=== PATIENT | male | born 1960 | race Two or more races ===

== ENCOUNTER 2020-04-18 11:25 | Outpatient (REF) | payer BC, SELFPAY | END 2020-04-18 11:26 | disposition home or self-care (01) | LOC: HO.LAB 11:25 | PROVIDERS: Visit Provider Nurse Practitioner Family | DX: L02.416 Cutaneous abscess of left lower limb (principal); L03.116 Cellulitis of left lower limb | CPT/HCPCS: 87071; 87077; 87186; 87205 ==

== ENCOUNTER 2020-05-06 12:58 | Outpatient (RCR) | payer BC, SELFPAY | END 2020-05-14 13:25 | disposition home or self-care (01) | LOC: HO.WCC 12:58 | PROVIDERS: Visit Provider Physician Assistant | DX: L03.116 Cellulitis of left lower limb (principal); L66.2 Folliculitis decalvans; Z79.2 Long term (current) use of antibiotics | CPT/HCPCS: 99212 ==

== ENCOUNTER 2021-07-11 19:18 | Emergency (ER) | payer BC, SELFPAY ==
--- NOTE | ~2021-07-11 | XR_ITS ---
EXAMINATION: XR CHEST CLINICAL INFORMATION: Influenza positive COMPARISON: X-ray 07/23/2015 TECHNIQUE: Frontal view of the chest was obtained. FINDINGS: Normal heart size. Mediastinal silhouette is within normal limits. There is hazy opacity in the left mid and lower lung, which could represent subtle infiltrates.. No effusion, edema or pneumothorax. XR/XR chest 1V IMPRESSION: Hazy opacities in left mid/lower lung, could represent subtle infiltrates. No dense consolidation is otherwise seen. Consider follow-up chest series to be obtained following treatment and/or resolution of symptoms to assure resolution of this appearance.
[2021-07-11 19:32] VITALS: BP 119/81; PULSE 85; RESP 17; TEMP 36.6; O2SAT 96; BMI 27.3
[2021-07-11 19:43] LABS: MANUAL DIFF FLAG NO
[2021-07-11 19:46] LABS: Basophils Percent Auto 0.4 % (0-2); Eosinophils Absolute Auto 0.2 X10*3/uL (0.0-0.4); Eosinophils Percent Auto 3.1 % (0-4); Hematocrit 43.7 % (42.0-52.0); Hemoglobin 14.9 g/dl (14.0-18.0); Imm Gran Abs Auto 0.01 X10*3/uL (0.00-0.03); Imm Gran Pct Auto 0.1 % (0.0-0.4); Lymphocytes Absolute Auto 1.9 X10*3/uL (1.2-4.9); Lymphocytes Percent Auto 27.3 % (20-40); Mean Corpuscular HGB Conc 34.1 g/dl (31.0-36.0); Mean Corpuscular Hemoglobin 29.7 pg (27.0-33.0); Mean Corpuscular Volume 87.2 fL (80.0-98.0); Mean Platelet Volume 9.9 fL (9.4-12.4); Monocytes Absolute Auto 0.6 X10*3/uL (0.1-1.2); Monocytes Percent Auto 7.8 % (2-11); Neutrophils Absolute Auto 4.3 x10*3/uL (2.0-8.3); Neutrophils Percent Auto 61.3 % (45-73); Platelet Count 200 X10*3/uL (160-400); Red Blood Count 5.01 X10*6/uL (4.60-5.80); Red Cell Distribution Width 14.9 % (11.0-16.0); White Blood Count 7.1 X10*3/uL (4.8-10.8)
[2021-07-11 20:00] LABS: COVID-19 Test Negative (Negative)
--- NOTE | 2021-07-11 20:03 | ED_ITS ---
HPI - General Adult General Chief complaint: General Medical Stated complaint: bodyaches Time Seen by Provider: 07/11/21 20:03 Source: patient Mode of arrival: ambulatory Limitations: no limitations History of Present Illness HPI narrative: Patient otherwise healthy history of COVID pneumonia last year already been vaccinated against influenza and COVID been sick for last 3- 4 days checked for the influenza on 07/09 positive comes here for as still coughing a lot mostly dry cough with body aches low-grade fever patient is on Tamiflu Related Data Home Medications Medication Instructions Recorded Confirmed flu vac [id number] 36mos up(PF) ml IM 04/18/20 Previous Rx's Medication Instructions Recorded cephalexin 500 mg capsule (Keflex) 500 mg PO QID 7 Days #28 cap 04/18/20 sulfamethoxazole 800 1 tab PO Q12H #14 tab 04/18/20 mg-trimethoprim 160 mg tablet (Bactrim DS) doxycycline hyclate 100 mg capsule 100 mg PO BID 10 Days #20 cap 04/25/20 albuterol sulfate 90 mcg/actuation 2 puff INHALATION Q4-6H PRN #8.5 g 07/11/21 aerosol inhaler (ProAir HFA) codeine 10 mg-guaifenesin 100 mg/5 10 ml PO Q6H PRN #237 ml 07/11/21 mL oral liquid Allergies Allergy/AdvReac Type Severity Reaction Status Date / Time No Known Allergies Allergy Verified 07/11/21 19:32 Review of Systems Review of Systems: Yes all other systems are reviewed and are negative PMFSH Social History Social History Advance Directives: No Advance Directives Information Provided: No Physical Exam ED Vital Signs: Vital Signs - 24 hr 07/11/21 19:32 Temperature 98 F Pulse Rate 85 Respiratory Rate 17 Blood Pressure 119/81 Pulse Oximetry 96 BMI result Body Mass Index 27.3 Appearance: Alert. Oriented X3. Frequent dry cough ENT: Pharynx normal. Oral Mucosa moist Neck: Normal inspection. Neck supple. CVS: Normal heart rate and rhythm. Pulses normal. Respiratory: No respiratory distress. Equal air entry bilateral, prolonged expiration with frequent cough no crackles Abdomen: Soft and nontender. Bowel sounds are present, Skin: Skin warm and dry. Normal skin color. Normal skin turgor. Neuro: Oriented X 3. Medical Decision Making MDM Narrative Medical decision making narrative: Patient with influenza A with wheezing labs are stable chest x-ray negative for infiltrate will discharge patient home on cough syrup and albuterol inhaler patient already on Tamiflu Lab Data Lab results reviewed: Yes I reviewed the patient's lab results. Result diagrams: 07/11/21 19:31 07/11/21 19:31 Labs: Lab Results 07/11/21 07/11/21 07/11/21 Range/Units 19:28 19:31 19:31 WBC 7.1 (4.8-10.8) X10*3/uL RBC 5.01 (4.60-5.80) X10*6/uL Hgb 14.9 (14.0-18.0) g/dl Hct 43.7 (42.0-52.0) % MCV 87.2 (80.0-98.0) fL MCH 29.7 (27.0-33.0) pg MCHC 34.1 (31.0-36.0) g/dl RDW 14.9 (11.0-16.0) % Plt Count 200 (160-400) X10*3/uL MPV 9.9 (9.4-12.4) fL Immature Gran % (Auto) 0.1 (0.0-0.4) % Neut % (Auto) 61.3 (45-73) % Lymph % (Auto) 27.3 (20-40) % [place] % (Auto) 7.8 (2-11) % Eos % (Auto) 3.1 (0-4) % Baso % (Auto) 0.4 (0-2) % Lymph # (Auto) 1.9 (1.2-4.9) X10*3/uL [place] # (Auto) 0.6 (0.1-1.2) X10*3/uL Eos # (Auto) 0.2 (0.0-0.4) X10*3/uL Baso # (Auto) 0.0 (0.0-0.2) X10*3/uL Abs Immat Gran (auto) 0.01 (0.00-0.03) X10*3/uL Absolute Neuts (auto) 4.3 (2.0-8.3) x10*3/uL Absolute Nucleated RBC 0.000 (0.0-0.012) X10*3/uL Nucleated RBC % (auto) 0.0 (0.0-0.2) /100WBC Sodium 143 (135-145) mmol/L Potassium 4.4 (3.3-5.1) mmol/L Chloride 107 (96-108) mmol/L Carbon Dioxide 26 (22-29) mmol/L Anion Gap 14 (12-20) BUN 16 (9-16) mg/dL Creatinine 1.29 (0.5-1.4) mg/dL Estim Creat Clear Calc 60.8 Estimated GFR 57 Random Glucose 86 (60-115) mg/dL Calcium 8.6 (8.4-10.2) mg/dL Total Bilirubin 0.3 (0.0-1.0) mg/dL AST 16 (5-37) U/L ALT 19 (0-40) U/L Alkaline Phosphatase 57 (39-117) U/L Total Protein 6.9 (6.5-8.0) g/dL Albumin 4.1 (3.5-5.0) g/dL COVID-19 (JOSE) Negative (Negative) COVID-19 Clin Com See Note Discharge Plan Discharge Clinical Impression: Influenza A Patient Disposition: Home, Self-Care Instructions: Influenza (ED) Additional Instructions: Take medication as prescribed inhaler and cough syrup Drink plenty of fluids Prescriptions: New codeine-guaifenesin 10-100 mg/5 mL liquid 10 ml PO Q6H PRN (Reason: cough) Qty: 237 0RF albuterol sulfate [ProAir HFA] 90 mcg/actuation HFA aerosol inhaler 2 puff inhalation Q4-6H PRN (Reason: Wheezing) Qty: 8.5 0RF No Action Afluria Qd 2019-(3yr up)(PF) 60 mcg (15 mcg x 4)/0.5 mL syringe IM 0RF cephalexin [Keflex] 500 mg capsule 500 mg PO QID 7 Days Qty: 28 0RF sulfamethoxazole-trimethoprim [Bactrim DS] 800-160 mg tablet 1 tab PO Q12H Qty: 14 0RF doxycycline hyclate 100 mg capsule 100 mg PO BID 10 Days Qty: 20 0RF Stand Alone Forms: Work/School Release
[2021-07-11 20:07] LABS: Alanine Aminotransferase 19 U/L (0-40); Albumin Level 4.1 g/dL (3.5-5.0); Alkaline Phosphatase 57 U/L (39-117); Anion Gap 14 (12-20); Aspartate Amino Transferase 16 U/L (5-37); Bilirubin Total 0.3 mg/dL (0.0-1.0); Blood Urea Nitrogen 16 mg/dL (9-16); Calcium 8.6 mg/dL (8.4-10.2); Carbon Dioxide 26 mmol/L (22-29); Chloride 107 mmol/L (96-108); Creatinine Clr Calc Pharmacy 60.8; Estimated Glomerular Filt Rate 57; Glucose Random 86 mg/dL (60-115); Potassium 4.4 mmol/L (3.3-5.1); Sodium 143 mmol/L (135-145); Total Protein 6.9 g/dL (6.5-8.0)
[2021-07-11] MEDS: Albuterol Sulfate 90 MCG 8 GM INHALER 4 PUFF INHALE (20:27)
[2021-07-11] MEDS: guaiFEN/Codeine SF 200/20/10ML 10 ML LIQUID PO (20:27)
== END 2021-07-11 21:51 | disposition home or self-care (01) ==
PROVIDERS: Emergency Provider Internal Medicine
DX: J11.1 Influenza due to unidentified influenza virus with other respiratory manifestations (principal); Z20.822 Contact with and (suspected) exposure to COVID-19
CPT/HCPCS: 36415; 71045; 80053; 85025; 87635; 99283; 99284

== ENCOUNTER 2022-06-06 12:33 | Emergency (ER) | payer BC, SELFPAY ==
[2022-06-06 12:55] VITALS: BP 127/69; PULSE 65; RESP 18; TEMP 36.3; O2SAT 98; BMI 26.6
--- NOTE | 2022-06-06 12:57 | ED.ABDPAIN ---
HPI - Abdominal Pain General Chief Complaint: Nausea/Vomiting/Diarrhea <Jaki Santos NP - Last Filed: 06/06/22 13:00> Stated Complaint: Stomach Cramps Nausea <Jaki Santos NP - Last Filed: 06/06/22 13:00> Time Seen by Provider: 06/06/22 14:52 <Jaki Santos NP - Last Filed: 06/06/22 13:00> Source: patient and family (Son at bedside) <VISHNU Carey Last Filed: 06/06/22 16:45> Mode of arrival: ambulatory <VISHNU Carey Last Filed: 06/06/22 16:45> Limitations: no limitations <VISHNU Carey Last Filed: 06/06/22 16:45> History of Present Illness HPI narrative: Pt is a 61 y/o male with no significant pMHX, send here after going to urgent care for n/v/d.? He also had a fever of 102 yesterday. They were concerned about abd tenderness and recommended he be seen in the ED.? Pt states his symptoms started around 0230 Tuesday and everyone in his family has a similar illness, including his son in a nearby ED room.? Pt has been unable to keep fluids and food down and is feeling dry.? He explains that his abd started hurting after vomiting and tensing up and feels crampy with the diarrhea.? He appeared comfortable and was not guarding. PT denies recent antibiotic use, headache, dizziness, loc, sob, chest pain, dysuria, CVAT is a currently afebrile. <VISHNU Carey - Last Filed: 06/06/22 16:45> MD elicited complaint: other (Nausea/vomiting/diarrhea) <VISHNU Carey Last Filed: 06/06/22 16:45> Pertinent past history: none <VISHNU Carey Last Filed: 06/06/22 16:45> Onset (ago): day(s) (2) <VISHNU Carey Last Filed: 06/06/22 16:45> Pain Consistency: constant <VISHNU Carey Last Filed: 06/06/22 16:45> Location: diffuse <VISHNU Carey - Last Filed: 06/06/22 16:45> Severity: mild <VISHNU Carey - Last Filed: 06/06/22 16:45> Quality: cramping <VISHNU Carey - Last Filed: 06/06/22 16:45> Radiation: none <VISHNU Carey - Last Filed: 06/06/22 16:45> Migration to: no migration <VISHNU Carey - Last Filed: 06/06/22 16:45> Exacerbating factors: nothing <VISHNU Carey - Last Filed: 06/06/22 16:45> Relieving factors: nothing <VISHNU Carey - Last Filed: 06/06/22 16:45> Associated symptoms: nausea, vomiting, diarrhea and fever <VISHNU Carey - Last Filed: 06/06/22 16:45> Related Data Home Medications: Home Medications Medication Instructions Recorded Confirmed flu vac [id number] 36mos up(PF) 60 ml IM 04/18/20 mcg (15 mcg x4)/0.5 mL IM syringe Previous Rx's Medication Instructions Recorded sulfamethoxazole 800 1 tab PO Q12H #14 tabs 04/18/20 mg-trimethoprim 160 mg tablet (Bactrim DS) doxycycline hyclate 100 mg capsule 100 mg PO BID 10 days #20 caps 04/25/20 albuterol sulfate 90 mcg/actuation 2 puff inhalation Q4-6H PRN 07/11/21 aerosol inhaler (ProAir HFA) Wheezing #8.5 grams codeine 10 mg-guaifenesin 100 mg/5 10 ml PO Q6H PRN cough #237 mL 07/11/21 mL oral liquid cephalexin 500 mg capsule 500 mg PO BID 10 days #20 caps 04/02/22 meloxicam 15 mg tablet 15 mg PO DAILY #14 tabs 04/02/22 ketorolac 10 mg tablet 10 mg PO Q8H #14 tabs 06/06/22 ondansetron HCl 4 mg tablet 4 mg PO Q8H #14 tabs 06/06/22 <Jaki Santos NP - Last Filed: 06/06/22 13:00> Allergies/Adverse Reactions: Allergies Allergy/AdvReac Type Severity Reaction Status Date / Time No Known Allergies Allergy Verified 04/02/22 09:31 <Jaki Santos NP - Last Filed: 06/06/22 13:00> Review of Systems Review of Systems Constitutional : + resolved Fever, No Chills, No Night Sweats, No Fatigue, No Malaise Cardiovascular : No Chest Pain, No SOB Respiratory : No Cough, No Sputum, No Wheezing, No Dyspnea Gastrointestinal : + Nausea, + Vomiting, + Diarrhea, + abdominal Pain, No Hematochezia, No Melena Genitourinary : No irregular bleeding, No Dysuria, No Urinary Frequency, No Hematuria,No Urinary Incontinence, No Urgency, No Flank Pain Musculoskeletal : No joint pain, No Myalgias, No Joint Swelling Skin : No Skin Lesions, No rash Neuro : No Weakness, No Numbness, No Paresthesias, No Loss of Consciousness, No Dizziness, No Headache Heme/Lymph: No Lymphadenopathy Endocrine : No Temperature Intolerance <VISHNU Carey - Last Filed: 06/06/22 16:45> Yes all other systems are reviewed and are negative <VISHNU Carey - Last Filed: 06/06/22 16:45> [facility] Past Medical History Attestation statement: The following information was validated with the patient. <VISHNU Carey - Last Filed: 06/06/22 16:45> Source: old records reviewed, obtained from family and nursing notes reviewed <VISHNU Carey - Last Filed: 06/06/22 16:45> Social History Social History: Social History Advance Directives: No Advance Directives Information Provided: No <Jaki Santos NP - Last Filed: 06/06/22 13:00> Physical Exam ED Vital Signs: Vital Signs - 24 hr 06/06/22 12:55 06/06/22 14:51 Temperature 97.3 F 98.3 F Pulse Rate 65 83 Respiratory Rate 18 14 Blood Pressure 127/69 127/99 H Pulse Oximetry 98 96 Oxygen Delivery Method Room Air Room Air BMI result Body Mass Index 26.6 <Jaki Santos NP - Last Filed: 06/06/22 13:00> Vital Signs - 24 hr 06/06/22 12:55 06/06/22 14:51 Temperature 97.3 F 98.3 F Pulse Rate 65 83 Respiratory Rate 18 14 Blood Pressure 127/69 127/99 H Pulse Oximetry 98 96 Oxygen Delivery Method Room Air Room Air BMI result Body Mass Index 26.6 Vital signs have been reviewed and all within normal limits <VISHNU Carey - Last Filed: 06/06/22 16:45> Appearance: Alert. Oriented X3. No acute distress. Head: Normal external exam. Normocephalic. Eyes: PERRLA. EOMI. Conjunctiva and sclera normal. Eyelids normal. ENT: Pharynx normal. Uvula midline. Moist mucous membranes. No trismus noted. No drooling noted. No muffled voice noted. Neck: Normal inspection. Neck supple. FROM. No adenopathy. No meningeal signs. CVS: Normal heart rate and rhythm. Heart sound normal. No murmurs noted. Pulses normal throughout. Respiratory: No respiratory distress. Painless inspiration. Breath sounds normal. No wheezes/rales/rhonchi noted. Chest nontender. No accessory muscle usage noted or decreased air movement noted. Abdomen: Soft and mild tenderness diffusely no point tenderness is noted. Nondistended. No guarding. No rigidity. Bowel sounds normal in all 4 quadrants. No distention noted. No organomegaly noted. No visible injury noted. No rebound tenderness. Negative Rovsing sign. Negative obturator's sign. Negative psoas sign. Negative Pedroza sign. Back: No CVA tenderness. Full range of motion noted. Skin: Skin warm and dry. Normal skin color. Normal skin turgor. No rashes/lesions/lacerations noted. Extremities: Extremities exhibit normal range of motion. Extremities nontender. Neuro: Oriented X 3. No motor deficit. No sensory deficit. Reflexes normal. Normal steady gait. CN's II-XII intact bilaterally? <VISHNU Carey - Last Filed: 06/06/22 16:45> Course Course Course Narrative: This is rapid medical exam. Deferred additional HPI, ROS, PE to primary provider. 61 yo male with no known medical problems here with vomiting, diarrhea, abdominal cramps since yesterday. Seen at and sent in to the ER for further evaluation. Per patient they were worried that my abdomen was tender. States everyone in my house has similar symptoms. Will obtain labs, UA, viral testing. Will give SL zofran. VSS <Jaki Santos NP - Last Filed: 06/06/22 13:00> Reevaluation(s) Reevaluation #1: Pt is a 61 y/o male with no significant pMHX, send here after going to urgent care for n/v/d.? He also had a fever of 102 yesterday. They were concerned about abd tenderness and recommended he be seen in the ED.? Pt states his symptoms started around 229 and everyone in his family has a similar illness, including his son in a nearby ED room.? Pt has been unable to keep fluids and food down and is feeling dry.? He explains that his abd started hurting after vomiting and tensing up and feels crampy with the diarrhea.? He appeared comfortable and was not guarding. PT denies recent antibiotic use, headache, dizziness, loc, sob, chest pain, dysuria, CVAT is a currently afebrile. This patient presents with nausea, vomiting & diarrhea and history of accompanied gastroenteritis. Abdominal exam without peritoneal signs. Currently euvolemic without evidence of dehydration. No evidence of surgical abdomen or other acute medical emergency including bowel obstruction, viscus perforation, vascular catastrophe, atypical appendicitis, acute cholecystitis at this time. Presentation not consistent with other acute, emergent causes of vomiting / diarrhea at this time. No indication for abdominal imaging. Plan: supportive care, IV rehydration, serial abdominal exam, reassess <VISHNU Carey - Last Filed: 06/06/22 16:45> Time: 15:10 <VISHNU Carey - Last Filed: 06/06/22 16:45> Reevaluation #2: Labs reviewed and patient's chloride 109. CRP 1.47. Total protein 6.1. Otherwise all other labs are within normal limits. Urine revealed a trace of ketones otherwise no evidence of UTI. Patient negative for COVID/RSV/flu. Therefore at this time patient now tolerating p.o. fluids. Re-evaluation of the abdomen is soft and nontender. No CVA tenderness is noted. Therefore no imaging indicated. Therefore at this time will DC home with Zofran and Toradol and instructions return if any new or worsening symptoms follow up with primary care provider. Patient with son at bedside who was also seen for same complaint understand agree this plan. <VISHNU Carey - Last Filed: 06/06/22 16:45> Time: 16:43 <VISHNU Carey - Last Filed: 06/06/22 16:45> Medical Decision Making Lab Data MDM Lab Attestation statement: I reviewed the patient's lab results. <VISHNU Carey - Last Filed: 06/06/22 16:45> Result Diagrams: 06/06/22 13:40 06/06/22 13:40 <Jaki Santos NP - Last Filed: 06/06/22 13:00> Labs: Lab Results 06/06/22 06/06/22 06/06/22 Range/Units 13:40 13:40 13:40 WBC 6.0 (4.8-10.8) X10*3/uL RBC 4.94 (4.60-5.80) X10*6/uL Hgb 14.3 (14.0-18.0) g/dl Hct 42.6 (42.0-52.0) % MCV 86.2 (80.0-98.0) fL MCH 28.9 (27.0-33.0) pg MCHC 33.6 (31.0-36.0) g/dl RDW 14.9 (11.0-16.0) % Plt Count 219 (160-400) X10*3/uL MPV 9.9 (9.4-12.4) fL Immature Gran % (Auto) 0.2 (0.0-0.4) % Neut % (Auto) 57.0 (45-73) % Lymph % (Auto) 29.0 (20-40) % [place] % (Auto) 11.1 H (2-11) % Eos % (Auto) 2.0 (0-4) % Baso % (Auto) 0.7 (0-2) % Lymph # (Auto) 1.8 (1.2-4.9) X10*3/uL [place] # (Auto) 0.7 (0.1-1.2) X10*3/uL Eos # (Auto) 0.1 (0.0-0.4) X10*3/uL Baso # (Auto) 0.0 (0.0-0.2) X10*3/uL Abs Immat Gran (auto) 0.01 (0.00-0.03) X10*3/uL Absolute Neuts (auto) 3.4 (2.0-8.3) x10*3/uL Absolute Nucleated RBC 0.000 (0.0-0.012) X10*3/uL Nucleated RBC % (auto) 0.0 (0.0-0.2) /100WBC ESR (0-15) MM/HR Sodium 144 (135-145) mmol/L Potassium 4.8 (3.3-5.1) mmol/L Chloride 109 H (96-108) mmol/L Carbon Dioxide 26 (22-29) mmol/L Anion Gap 14 (12-20) BUN 16 (9-16) mg/dL Creatinine 1.04 (0.5-1.4) mg/dL Estim Creat Clear Calc 74.5 Estimated GFR > 60 Random Glucose 99 (60-115) mg/dL Calcium 8.8 (8.4-10.2) mg/dL Magnesium 2.2 (1.6-2.6) mg/dL Total Bilirubin 0.3 (0.0-1.0) mg/dL Direct Bilirubin < 0.2 (0.0-0.5) mg/dL AST 17 (5-37) U/L ALT 15 (0-40) U/L Alkaline Phosphatase 51 (39-117) U/L C-Reactive Protein 1.47 H (< or = 0.50) mg/dL Total Protein 6.1 L (6.5-8.0) g/dL Albumin 3.9 (3.5-5.0) g/dL Lipase 24 (8-78) U/L Urine Color Urine Appearance Urine pH (5.0-9.0) Ur Specific [place] (1.005-1.025) Urine Protein (Neg-Trace) mg/dL Urine Glucose (UA) (Negative) mg/dL Urine Ketones (Negative) mg/dL Urine Blood (Negative) Urine Nitrite (Negative) Ur Leukocyte Esterase (Negative) Influenza Type A (PCR) NEGATIVE (Negative) Influenza Type B (PCR) NEGATIVE (Negative) RSV RNA Qual (PCR) NEGATIVE (Negative) SARS-CoV-2 RNA (RT-PCR) NEGATIVE (Negative) 06/06/22 06/06/22 Range/Units 13:40 13:40 WBC (4.8-10.8) X10*3/uL RBC (4.60-5.80) X10*6/uL Hgb (14.0-18.0) g/dl Hct (42.0-52.0) % MCV (80.0-98.0) fL MCH (27.0-33.0) pg MCHC (31.0-36.0) g/dl RDW (11.0-16.0) % Plt Count (160-400) X10*3/uL MPV (9.4-12.4) fL Immature Gran % (Auto) (0.0-0.4) % Neut % (Auto) (45-73) % Lymph % (Auto) (20-40) % [place] % (Auto) (2-11) % Eos % (Auto) (0-4) % Baso % (Auto) (0-2) % Lymph # (Auto) (1.2-4.9) X10*3/uL [place] # (Auto) (0.1-1.2) X10*3/uL Eos # (Auto) (0.0-0.4) X10*3/uL Baso # (Auto) (0.0-0.2) X10*3/uL Abs Immat Gran (auto) (0.00-0.03) X10*3/uL Absolute Neuts (auto) (2.0-8.3) x10*3/uL Absolute Nucleated RBC (0.0-0.012) X10*3/uL Nucleated RBC % (auto) (0.0-0.2) /100WBC ESR 7 (0-15) MM/HR Sodium (135-145) mmol/L Potassium (3.3-5.1) mmol/L Chloride (96-108) mmol/L Carbon Dioxide (22-29) mmol/L Anion Gap (12-20) BUN (9-16) mg/dL Creatinine (0.5-1.4) mg/dL Estim Creat Clear Calc Estimated GFR Random Glucose (60-115) mg/dL Calcium (8.4-10.2) mg/dL Magnesium (1.6-2.6) mg/dL Total Bilirubin (0.0-1.0) mg/dL Direct Bilirubin (0.0-0.5) mg/dL AST (5-37) U/L ALT (0-40) U/L Alkaline Phosphatase (39-117) U/L C-Reactive Protein (< or = 0.50) mg/dL Total Protein (6.5-8.0) g/dL Albumin (3.5-5.0) g/dL Lipase (8-78) U/L Urine Color Dark Yellow Urine Appearance Clear Urine pH 5.5 (5.0-9.0) Ur Specific [place] >= 1.030 H (1.005-1.025) Urine Protein Trace (Neg-Trace) mg/dL Urine Glucose (UA) Negative (Negative) mg/dL Urine Ketones Trace (Negative) mg/dL Urine Blood Negative (Negative) Urine Nitrite Negative (Negative) Ur Leukocyte Esterase Negative (Negative) Influenza Type A (PCR) (Negative) Influenza Type B (PCR) (Negative) RSV RNA Qual (PCR) (Negative) SARS-CoV-2 RNA (RT-PCR) (Negative) <Jaki Santos, PRE BILLING CLINICIAN - Last Filed: 06/06/22 13:00> Lab Results 06/06/22 06/06/22 06/06/22 Range/Units 13:40 13:40 13:40 WBC 6.0 (4.8-10.8) X10*3/uL RBC 4.94 (4.60-5.80) X10*6/uL Hgb 14.3 (14.0-18.0) g/dl Hct 42.6 (42.0-52.0) % MCV 86.2 (80.0-98.0) fL MCH 28.9 (27.0-33.0) pg MCHC 33.6 (31.0-36.0) g/dl RDW 14.9 (11.0-16.0) % Plt Count 219 (160-400) X10*3/uL MPV 9.9 (9.4-12.4) fL Immature Gran % (Auto) 0.2 (0.0-0.4) % Neut % (Auto) 57.0 (45-73) % Lymph % (Auto) 29.0 (20-40) % [place] % (Auto) 11.1 H (2-11) % Eos % (Auto) 2.0 (0-4) % Baso % (Auto) 0.7 (0-2) % Lymph # (Auto) 1.8 (1.2-4.9) X10*3/uL [place] # (Auto) 0.7 (0.1-1.2) X10*3/uL Eos # (Auto) 0.1 (0.0-0.4) X10*3/uL Baso # (Auto) 0.0 (0.0-0.2) X10*3/uL Abs Immat Gran (auto) 0.01 (0.00-0.03) X10*3/uL Absolute Neuts (auto) 3.4 (2.0-8.3) x10*3/uL Absolute Nucleated RBC 0.000 (0.0-0.012) X10*3/uL Nucleated RBC % (auto) 0.0 (0.0-0.2) /100WBC ESR (0-15) MM/HR Sodium 144 (135-145) mmol/L Potassium 4.8 (3.3-5.1) mmol/L Chloride 109 H (96-108) mmol/L Carbon Dioxide 26 (22-29) mmol/L Anion Gap 14 (12-20) BUN 16 (9-16) mg/dL Creatinine 1.04 (0.5-1.4) mg/dL Estim Creat Clear Calc 74.5 Estimated GFR > 60 Random Glucose 99 (60-115) mg/dL Calcium 8.8 (8.4-10.2) mg/dL Magnesium 2.2 (1.6-2.6) mg/dL Total Bilirubin 0.3 (0.0-1.0) mg/dL Direct Bilirubin < 0.2 (0.0-0.5) mg/dL AST 17 (5-37) U/L ALT 15 (0-40) U/L Alkaline Phosphatase 51 (39-117) U/L C-Reactive Protein 1.47 H (< or = 0.50) mg/dL Total Protein 6.1 L (6.5-8.0) g/dL Albumin 3.9 (3.5-5.0) g/dL Lipase 24 (8-78) U/L Urine Color Urine Appearance Urine pH (5.0-9.0) Ur Specific [place] (1.005-1.025) Urine Protein (Neg-Trace) mg/dL Urine Glucose (UA) (Negative) mg/dL Urine Ketones (Negative) mg/dL Urine Blood (Negative) Urine Nitrite (Negative) Ur Leukocyte Esterase (Negative) Influenza Type A (PCR) NEGATIVE (Negative) Influenza Type B (PCR) NEGATIVE (Negative) RSV RNA Qual (PCR) NEGATIVE (Negative) SARS-CoV-2 RNA (RT-PCR) NEGATIVE (Negative) 06/06/22 06/06/22 Range/Units 13:40 13:40 WBC (4.8-10.8) X10*3/uL RBC (4.60-5.80) X10*6/uL Hgb (14.0-18.0) g/dl Hct (42.0-52.0) % MCV (80.0-98.0) fL MCH (27.0-33.0) pg MCHC (31.0-36.0) g/dl RDW (11.0-16.0) % Plt Count (160-400) X10*3/uL MPV (9.4-12.4) fL Immature Gran % (Auto) (0.0-0.4) % Neut % (Auto) (45-73) % Lymph % (Auto) (20-40) % [place] % (Auto) (2-11) % Eos % (Auto) (0-4) % Baso % (Auto) (0-2) % Lymph # (Auto) (1.2-4.9) X10*3/uL [place] # (Auto) (0.1-1.2) X10*3/uL Eos # (Auto) (0.0-0.4) X10*3/uL Baso # (Auto) (0.0-0.2) X10*3/uL Abs Immat Gran (auto) (0.00-0.03) X10*3/uL Absolute Neuts (auto) (2.0-8.3) x10*3/uL Absolute Nucleated RBC (0.0-0.012) X10*3/uL Nucleated RBC % (auto) (0.0-0.2) /100WBC ESR 7 (0-15) MM/HR Sodium (135-145) mmol/L Potassium (3.3-5.1) mmol/L Chloride (96-108) mmol/L Carbon Dioxide (22-29) mmol/L Anion Gap (12-20) BUN (9-16) mg/dL Creatinine (0.5-1.4) mg/dL Estim Creat Clear Calc Estimated GFR Random Glucose (60-115) mg/dL Calcium (8.4-10.2) mg/dL Magnesium (1.6-2.6) mg/dL Total Bilirubin (0.0-1.0) mg/dL Direct Bilirubin (0.0-0.5) mg/dL AST (5-37) U/L ALT (0-40) U/L Alkaline Phosphatase (39-117) U/L C-Reactive Protein (< or = 0.50) mg/dL Total Protein (6.5-8.0) g/dL Albumin (3.5-5.0) g/dL Lipase (8-78) U/L Urine Color Dark Yellow Urine Appearance Clear Urine pH 5.5 (5.0-9.0) Ur Specific [place] >= 1.030 H (1.005-1.025) Urine Protein Trace (Neg-Trace) mg/dL Urine Glucose (UA) Negative (Negative) mg/dL Urine Ketones Trace (Negative) mg/dL Urine Blood Negative (Negative) Urine Nitrite Negative (Negative) Ur Leukocyte Esterase Negative (Negative) Influenza Type A (PCR) (Negative) Influenza Type B (PCR) (Negative) RSV RNA Qual (PCR) (Negative) SARS-CoV-2 RNA (RT-PCR) (Negative) <VISHNU Carey - Last Filed: 06/06/22 16:45> Independent Historian Clinical information obtained from an independent historian. History obtained from or confirmed by: Other (Patient and son at bedside) <VISHNU Carey - Last Filed: 06/06/22 16:45> External Record Review External record reviewed: Inpatient record, Office record, Outpatient record, Prior outpatient labs, Prior outpatient radiology, Primary care record and Outside ED record <VISHNU aCrey - Last Filed: 06/06/22 16:45> All prior records in our system reviewed an outpatient labs in <VISHNU Carey - Last Filed: 06/06/22 16:45> Prescription Management Patient will be sent home with Zofran and Toradol <VISHNU Carey - Last Filed: 06/06/22 16:45> Medications Administered Discontinued Medications Generic Name Dose Route Start Last Admin Trade Name Freq PRN Reason Stop Dose Admin Sodium Chloride 1,000 mls @ 999 mls/hr 06/06/22 15:30 06/06/22 15:40 Ns IVCONT 06/06/22 16:30 999 mls/hr .Q1H1M [place] Administration Ketorolac Tromethamine 30 mg 06/06/22 15:22 06/06/22 15:44 Ketorolac Tromethamine 30 Mg/Ml Vial IVPUSH 06/06/22 15:23 30 mg ONCE ONE Administration Ondansetron HCl 4 mg 06/06/22 12:58 06/06/22 13:03 Ondansetron Odt 4 Mg Tab.Rapdis TRANSLINGU 06/06/22 12:59 4 mg ONCE ONE Administration Ondansetron HCl 4 mg 06/06/22 15:16 06/06/22 15:45 Ondansetron Hcl 4 Mg/2 Ml Vial IVPUSH 06/06/22 15:17 4 mg ONCE ONE Administration <Jaki Santos NP - Last Filed: 06/06/22 13:00> Medications Administered Discontinued Medications Generic Name Dose Route Start Last Admin Trade Name Freq PRN Reason Stop Dose Admin Sodium Chloride 1,000 mls @ 999 mls/hr 06/06/22 15:30 06/06/22 15:40 Ns IVCONT 06/06/22 16:30 999 mls/hr .Q1H1M [place] Administration Ketorolac Tromethamine 30 mg 06/06/22 15:22 06/06/22 15:44 Ketorolac Tromethamine 30 Mg/Ml Vial IVPUSH 06/06/22 15:23 30 mg ONCE ONE Administration Ondansetron HCl 4 mg 06/06/22 12:58 06/06/22 13:03 Ondansetron Odt 4 Mg Tab.Rapdis TRANSLINGU 06/06/22 12:59 4 mg ONCE ONE Administration Ondansetron HCl 4 mg 06/06/22 15:16 06/06/22 15:45 Ondansetron Hcl 4 Mg/2 Ml Vial IVPUSH 06/06/22 15:17 4 mg ONCE ONE Administration <VISHNU Carey - Last Filed: 06/06/22 16:45> Discharge Plan Discharge Clinical Impression: Gastroenteritis <Jaki Santos NP - Last Filed: 06/06/22 13:00> Patient Disposition: Home, Self-Care <Jaki Santos NP - Last Filed: 06/06/22 13:00> Prescriptions: New ondansetron HCl 4 mg tablet 4 mg PO Q8H Qty: 14 0RF ketorolac 10 mg tablet 10 mg PO Q8H Qty: 14 0RF Rx Instructions: first dose given in the ED by IV and patient tolerated well No Action codeine-guaifenesin 10-100 mg/5 mL liquid 10 ml PO Q6H PRN (Reason: cough) Qty: 237 0RF albuterol sulfate [ProAir HFA] 90 mcg/actuation HFA aerosol inhaler 2 puff inhalation Q4-6H PRN (Reason: Wheezing) Qty: 8.5 0RF Afluria Qd 2020-21(3yr up)(PF) 60 mcg (15 mcg x 4)/0.5 mL syringe IM sulfamethoxazole-trimethoprim [Bactrim DS] 800-160 mg tablet 1 tab PO Q12H Qty: 14 0RF doxycycline hyclate 100 mg capsule 100 mg PO BID 10 Days Qty: 20 0RF cephalexin 500 mg capsule 500 mg PO BID 10 Days Qty: 20 0RF meloxicam 15 mg tablet 15 mg PO DAILY Qty: 14 0RF <Jaki Santos NP - Last Filed: 06/06/22 13:00> Referrals: Kirk Parker MD [Primary Care Provider] - 2 days <Jaki Santos NP - Last Filed: 06/06/22 13:00> Stand Alone Forms: Work/School Release <Jaki Santos NP - Last Filed: 06/06/22 13:00>
[2022-06-06] MEDS: Ondansetron ODT 4 MG TAB.RAPDIS TRANSLINGU (13:03)
[2022-06-06 13:48] LABS: Basophils Percent Auto 0.7 % (0-2); Eosinophils Absolute Auto 0.1 X10*3/uL (0.0-0.4); Hematocrit 42.6 % (42.0-52.0); Hemoglobin 14.3 g/dl (14.0-18.0); Imm Gran Abs Auto 0.01 X10*3/uL (0.00-0.03); Imm Gran Pct Auto 0.2 % (0.0-0.4); Lymphocytes Absolute Auto 1.8 X10*3/uL (1.2-4.9); MANUAL DIFF FLAG NO; Mean Corpuscular HGB Conc 33.6 g/dl (31.0-36.0); Mean Corpuscular Hemoglobin 28.9 pg (27.0-33.0); Mean Corpuscular Volume 86.2 fL (80.0-98.0); Mean Platelet Volume 9.9 fL (9.4-12.4); Monocytes Absolute Auto 0.7 X10*3/uL (0.1-1.2); Monocytes Percent Auto 11.1 % (2-11); Neutrophils Absolute Auto 3.4 x10*3/uL (2.0-8.3); Platelet Count 219 X10*3/uL (160-400); Red Blood Count 4.94 X10*6/uL (4.60-5.80); Red Cell Distribution Width 14.9 % (11.0-16.0)
[2022-06-06 13:49] LABS: Appearance Urine Clear; Color Urine Dark Yellow; Glucose Urine UA Negative (Negative); Leukocyte Esterase Urine Negative (Negative); Nitrite Urine Negative (Negative); PH 5.5 (5.0-9.0); Specific Gravity - Urine >= 1.030 (1.005-1.025); Urine Blood Negative (Negative); Urine Ketones Trace mg/dL (Negative); Urine Protein Trace mg/dL (Neg-Trace)
[2022-06-06 14:04] LABS: Alanine Aminotransferase 15 U/L (0-40); Albumin Level 3.9 g/dL (3.5-5.0); Alkaline Phosphatase 51 U/L (39-117); Anion Gap 14 (12-20); Aspartate Amino Transferase 17 U/L (5-37); Bilirubin Direct < 0.2 mg/dL (0.0-0.5); Bilirubin Total 0.3 mg/dL (0.0-1.0); Blood Urea Nitrogen 16 mg/dL (9-16); Calcium 8.8 mg/dL (8.4-10.2); Carbon Dioxide 26 mmol/L (22-29); Chloride 109 mmol/L (96-108); Creatinine Clr Calc Pharmacy 74.5; Estimated Glomerular Filt Rate > 60; Glucose Random 99 mg/dL (60-115); Potassium 4.8 mmol/L (3.3-5.1); Sodium 144 mmol/L (135-145); Total Protein 6.1 g/dL (6.5-8.0)
[2022-06-06 14:25] LABS: Influenza A PCR NEGATIVE (Negative); Influenza B PCR NEGATIVE (Negative); Resp Syncy Virus RNA Qual PCR NEGATIVE (Negative); SARS COV2 PCR INHOUSE NEGATIVE (Negative)
[2022-06-06 14:51] VITALS: BP 127/99; PULSE 83; RESP 14; TEMP 36.8; O2SAT 96
--- NOTE | 2022-06-06 15:17 | ED_ITS ---
HPI - Nausea/Vomiting/Diarrhea General Chief complaint: Nausea/Vomiting/Diarrhea Stated complaint: Stomach Cramps Nausea Time Seen by Provider: 06/06/22 14:52 Source: patient Mode of arrival: ambulatory Limitations: no limitations History of Present Illness HPI Narrative: Pt is a 61 y/o male with no significant pMHX, send here after going to urgent care for n/v/d. He also had a fever of 102 yesterday. They were concerned about abd tenderness and recommended he be seen in the ED. Pt states his symptoms started around 89 and everyone in his family has a similar illness, including his son in a nearby ED room. Pt has been unable to keep fluids and food down and is feeling dry. He explains that his abd started hurting after vomiting and tensing up and feels crampy with the diarrhea. He appeared comfortable and was not guarding. PT denies recent antibiotic use, headache, dizziness, loc, sob, chest pain, dysuria, CVAT is a currently afebrile. MD elicited complaint: nausea, vomiting and diarrhea Onset (ago): day(s) (2) Associated nausea: Yes Associated abdominal pain: Yes Location of pain: diffuse (diffuse tenderness) Radiation: diffuse Pain consistency: intermittent Severity: mild Quality: cramping Exacerbating factors: bowel movement Relieving factors: bowel movement Context: sick contacts Associated symptoms: fever/chills and nausea/vomiting Treatment prior to arrival: none Related Data Home Medications Medication Instructions Recorded Confirmed flu vac [id number] 36mos up(PF) 60 ml IM 04/18/20 mcg (15 mcg x4)/0.5 mL IM syringe Previous Rx's Medication Instructions Recorded sulfamethoxazole 800 1 tab PO Q12H #14 tabs 04/18/20 mg-trimethoprim 160 mg tablet (Bactrim DS) doxycycline hyclate 100 mg capsule 100 mg PO BID 10 days #20 caps 04/25/20 albuterol sulfate 90 mcg/actuation 2 puff inhalation Q4-6H PRN 07/11/21 aerosol inhaler (ProAir HFA) Wheezing #8.5 grams codeine 10 mg-guaifenesin 100 mg/5 10 ml PO Q6H PRN cough #237 mL 07/11/21 mL oral liquid cephalexin 500 mg capsule 500 mg PO BID 10 days #20 caps 12/30/22 meloxicam 15 mg tablet 15 mg PO DAILY #14 tabs 04/02/22 Allergies Allergy/AdvReac Type Severity Reaction Status Date / Time No Known Allergies Allergy Verified 04/02/22 09:31 Review of Systems Review of Systems: Constitutional : No Fever, No Chills, No Night Sweats, No Fatigue, No Malaise Cardiovascular : No Chest Pain, No SOB Respiratory : No Cough, No Sputum, No Wheezing, No Dyspnea Gastrointestinal : + Nausea, + Vomiting, No Diarrhea, + abdominal tenderness and cramping, No Hematochezia, No Melena Genitourinary : No irregular bleeding, No Dysuria, No Urinary Frequency, No Hematuria,No Urinary Incontinence, No Urgency, No Flank Pain Musculoskeletal : No joint pain, No Myalgias, No Joint Swelling Skin : No Skin Lesions, No rash Neuro : No Weakness, No Numbness, No Paresthesias, No Loss of Consciousness, No Dizziness, No Headache Heme/Lymph: No Lymphadenopathy Endocrine : No Temperature Intolerance Yes all other systems are reviewed and a re negative Gastrointestinal: Gastrointestinal: Reports nausea PMFSH Past Medical History Source: old records reviewed Physical Exam Vital Signs: Vital Signs: Last Vital Signs Temp 98.3 F 06/06/22 14:51 Pulse 83 06/06/22 14:51 Resp 14 06/06/22 14:51 BP 127/99 H 06/06/22 14:51 Pulse Ox 96 06/06/22 14:51 O2 Del Method 06/06/22 14:51 BMI result Body Mass Index 26.6 vital signs have been reviewed as normal and appeared to be correct. Blood pressure normal. Heart rate normal. Respiration rate normal. Temperature normal. Oxygen saturation normal. Appearance: Alert. Oriented X3. No acute distress. Head: Normal external exam. Normocephalic. Eyes: PERRLA. EOMI. Conjunctiva and sclera normal. Eyelids normal. ENT: Pharynx normal. Uvula midline. Moist mucous membranes. No trismus noted. No drooling noted. No muffled voice noted. Neck: Normal inspection. Neck supple. FROM. No adenopathy. No meningeal signs. CVS: Normal heart rate and rhythm. Heart sound normal. No murmurs noted. Pulses normal throughout. Respiratory: No respiratory distress. Painless inspiration. Breath sounds normal. No wheezes/rales/rhonchi noted. Chest nontender. No accessory muscle usage noted or decreased air movement noted. Abdomen: Soft with diffuse tenderness/soreness. Nondistended. No guarding. No rigidity. Bowel sounds normal in all 4 quadrants. No distention noted. No organomegaly noted. No visible injury noted. No rebound tenderness. Negative Rovsing sign. Negative obturator's sign. Negative psoas sign. Negative Pedroza sign. Back: No CVA tenderness. Full range of motion noted. Skin: Skin warm and dry. Normal skin color. Normal skin turgor. No rashes/lesions/lacerations noted. Extremities: Extremities exhibit normal range of motion. Extremities nontender. Neuro: Oriented X 3. No motor deficit. No sensory deficit. Reflexes normal. Normal steady gait. CN's II-XII intact bilaterally? Medications Administered Discontinued Medications Generic Name Dose Route Start Last Admin Trade Name Freq PRN Reason Stop Dose Admin Ondansetron HCl 4 mg 06/06/22 12:58 06/06/22 13:03 Ondansetron Odt 4 Mg Tab.Rapdis TRANSLINGU 06/06/22 12:59 4 mg ONCE ONE Administration Medical Decision Making Medical Decision Making [facility] Narrative: This patient presents with nausea, vomiting & diarrhea and history of accompani. Differential diagnoses includes possible acute gastroenteritis. Abdominal exam without peritoneal signs. Currently euvolemic without evidence of dehydration. No evidence of surgical abdomen or other acute medical emergency including bowel obstruction, viscus perforation, vascular catastrophe, atypical appendicitis, acute cholecystitis at this time. Presentation not consistent with other acute, emergent causes of vomiting / diarrhea at this time. No indication for abdominal imaging. Plan: supportive care, oral // IV rehydration , serial abdominal exam, reassess Lab Data 06/06/22 13:40 06/06/22 13:40 Labs: Lab Results 06/06/22 06/06/22 06/06/22 Range/Units 13:40 13:40 13:40 WBC 6.0 (4.8-10.8) X10*3/uL RBC 4.94 (4.60-5.80) X10*6/uL Hgb 14.3 (14.0-18.0) g/dl Hct 42.6 (42.0-52.0) % MCV 86.2 (80.0-98.0) fL MCH 28.9 (27.0-33.0) pg MCHC 33.6 (31.0-36.0) g/dl RDW 14.9 (11.0-16.0) % Plt Count 219 (160-400) X10*3/uL MPV 9.9 (9.4-12.4) fL Immature Gran % (Auto) 0.2 (0.0-0.4) % Neut % (Auto) 57.0 (45-73) % Lymph % (Auto) 29.0 (20-40) % [place] % (Auto) 11.1 H (2-11) % Eos % (Auto) 2.0 (0-4) % Baso % (Auto) 0.7 (0-2) % Lymph # (Auto) 1.8 (1.2-4.9) X10*3/uL [place] # (Auto) 0.7 (0.1-1.2) X10*3/uL Eos # (Auto) 0.1 (0.0-0.4) X10*3/uL Baso # (Auto) 0.0 (0.0-0.2) X10*3/uL Abs Immat Gran (auto) 0.01 (0.00-0.03) X10*3/uL Absolute Neuts (auto) 3.4 (2.0-8.3) x10*3/uL Absolute Nucleated RBC 0.000 (0.0-0.012) X10*3/uL Nucleated RBC % (auto) 0.0 (0.0-0.2) /100WBC Sodium 144 (135-145) mmol/L Potassium 4.8 (3.3-5.1) mmol/L Chloride 109 H (96-108) mmol/L Carbon Dioxide 26 (22-29) mmol/L Anion Gap 14 (12-20) BUN 16 (9-16) mg/dL Creatinine 1.04 (0.5-1.4) mg/dL Estim Creat Clear Calc 74.5 Estimated GFR > 60 Random Glucose 99 (60-115) mg/dL Calcium 8.8 (8.4-10.2) mg/dL Total Bilirubin 0.3 (0.0-1.0) mg/dL Direct Bilirubin < 0.2 (0.0-0.5) mg/dL AST 17 (5-37) U/L ALT 15 (0-40) U/L Alkaline Phosphatase 51 (39-117) U/L Total Protein 6.1 L (6.5-8.0) g/dL Albumin 3.9 (3.5-5.0) g/dL Urine Color Urine Appearance Urine pH (5.0-9.0) Ur Specific [place] (1.005-1.025) Urine Protein (Neg-Trace) mg/dL Urine Glucose (UA) (Negative) mg/dL Urine Ketones (Negative) mg/dL Urine Blood (Negative) Urine Nitrite (Negative) Ur Leukocyte Esterase (Negative) Influenza Type A (PCR) NEGATIVE (Negative) Influenza Type B (PCR) NEGATIVE (Negative) RSV RNA Qual (PCR) NEGATIVE (Negative) SARS-CoV-2 RNA (RT-PCR) NEGATIVE (Negative) 06/06/22 Range/Units 13:40 WBC (4.8-10.8) X10*3/uL RBC (4.60-5.80) X10*6/uL Hgb (14.0-18.0) g/dl Hct (42.0-52.0) % MCV (80.0-98.0) fL MCH (27.0-33.0) pg MCHC (31.0-36.0) g/dl RDW (11.0-16.0) % Plt Count (160-400) X10*3/uL MPV (9.4-12.4) fL Immature Gran % (Auto) (0.0-0.4) % Neut % (Auto) (45-73) % Lymph % (Auto) (20-40) % [place] % (Auto) (2-11) % Eos % (Auto) (0-4) % Baso % (Auto) (0-2) % Lymph # (Auto) (1.2-4.9) X10*3/uL [place] # (Auto) (0.1-1.2) X10*3/uL Eos # (Auto) (0.0-0.4) X10*3/uL Baso # (Auto) (0.0-0.2) X10*3/uL Abs Immat Gran (auto) (0.00-0.03) X10*3/uL Absolute Neuts (auto) (2.0-8.3) x10*3/uL Absolute Nucleated RBC (0.0-0.012) X10*3/uL Nucleated RBC % (auto) (0.0-0.2) /100WBC Sodium (135-145) mmol/L Potassium (3.3-5.1) mmol/L Chloride (96-108) mmol/L Carbon Dioxide (22-29) mmol/L Anion Gap (12-20) BUN (9-16) mg/dL Creatinine (0.5-1.4) mg/dL Estim Creat Clear Calc Estimated GFR Random Glucose (60-115) mg/dL Calcium (8.4-10.2) mg/dL Total Bilirubin (0.0-1.0) mg/dL Direct Bilirubin (0.0-0.5) mg/dL AST (5-37) U/L ALT (0-40) U/L Alkaline Phosphatase (39-117) U/L Total Protein (6.5-8.0) g/dL Albumin (3.5-5.0) g/dL Urine Color Dark Yellow Urine Appearance Clear Urine pH 5.5 (5.0-9.0) Ur Specific [place] >= 1.030 H (1.005-1.025) Urine Protein Trace (Neg-Trace) mg/dL Urine Glucose (UA) Negative (Negative) mg/dL Urine Ketones Trace (Negative) mg/dL Urine Blood Negative (Negative) Urine Nitrite Negative (Negative) Ur Leukocyte Esterase Negative (Negative) Influenza Type A (PCR) (Negative) Influenza Type B (PCR) (Negative) RSV RNA Qual (PCR) (Negative) SARS-CoV-2 RNA (RT-PCR) (Negative) Discharge Plan Discharge Prescriptions: No Action codeine-guaifenesin 10-100 mg/5 mL liquid 10 ml PO Q6H PRN (Reason: cough) Qty: 237 0RF albuterol sulfate [ProAir HFA] 90 mcg/actuation HFA aerosol inhaler 2 puff inhalation Q4-6H PRN (Reason: Wheezing) Qty: 8.5 0RF Afluria Qd 2020-21(3yr up)(PF) 60 mcg (15 mcg x 4)/0.5 mL syringe IM sulfamethoxazole-trimethoprim [Bactrim DS] 800-160 mg tablet 1 tab PO Q12H Qty: 14 0RF doxycycline hyclate 100 mg capsule 100 mg PO BID 10 Days Qty: 20 0RF cephalexin 500 mg capsule 500 mg PO BID 10 Days Qty: 20 0RF meloxicam 15 mg tablet 15 mg PO DAILY Qty: 14 0RF
[2022-06-06 15:30] LABS: C Reactive Protein 1.47 mg/dL (< or = 0.50); Lipase 24 U/L (8-78); Magnesium 2.2 mg/dL (1.6-2.6)
[2022-06-06] MEDS: 0.9 % Sodium Chloride 1,000 ML 999 ML IVCONT (15:40)
[2022-06-06] MEDS: Ketorolac Tromethamine 30 MG/ML VIAL IVPUSH (15:44)
[2022-06-06] MEDS: ondansetron HCL 4 MG/2 ML VIAL IVPUSH (15:45)
[2022-06-06 15:55] LABS: Erythrocyte Sedimentation Rate 7 MM/HR (0-15)
== END 2022-06-06 16:54 | disposition home or self-care (01) ==
PROVIDERS: Nurse Practitioner Family; Physician Assistant Medical; Emergency Provider Emergency Medicine; PCP Internal Medicine
DX: K52.9 Noninfective gastroenteritis and colitis, unspecified (principal); R50.9 Fever, unspecified; R11.2 Nausea with vomiting, unspecified; Z20.822 Contact with and (suspected) exposure to COVID-19; Z20.828 Contact with and (suspected) exposure to other viral communicable diseases; Z79.899 Other long term (current) drug therapy
CPT/HCPCS: 0241U; 80048; 80076; 81003; 83690; 83735; 85025; 85652; 86140; 96361; 96374; 96375; 99284; J1885; J2405